=== PATIENT | female | born 1965 | race Two or more races ===

== ENCOUNTER 2018-02-19 20:57 | Emergency (ER) | payer SELFPAY ==
[~2018-02-19] VITALS: Ht 162.6 cm; Wt 54.4 kg
[2018-02-20 10:52] VITALS: BP 123/68
== END 2018-02-20 14:18 | disposition home or self-care (01) ==
LOC: EDBD 20:57 → ER 21:09
DX: S30.0XXA Contusion of lower back and pelvis, initial encounter (principal); S80.02XA Contusion of left knee, initial encounter; S90.02XA Contusion of left ankle, initial encounter; I10 Essential (primary) hypertension; F17.210 Nicotine dependence, cigarettes, uncomplicated; Z88.0 Allergy status to penicillin; M62.838 Other muscle spasm; X58.XXXA Exposure to other specified factors, initial encounter; Y93.89 Activity, other specified; Y92.89 Other specified places as the place of occurrence of the external cause; Y99.8 Other external cause status
CPT/HCPCS: 72125; 72131; 73560; 73600